=== PATIENT | male | born 1955 | race Caucasian/White ===

== ENCOUNTER 2022-09-15 12:01 | Emergency (ER) | payer OTHER, SELFPAY ==
[2022-09-15 12:25] VITALS: BP 141/86; PULSE 85; TEMP 36.8; O2SAT 95; BMI 38.2
--- NOTE | 2022-09-15 12:29 | XR_ITS ---
WS: [id number] Portable AP upright chest, 09/15/2022 Clinical Data: Rib pain Comparison: None. Findings: No nodules, masses or effusions are seen. The heart is normal. The pulmonary vascularity is not increased. No pneumonia or pneumothorax is seen. The aortic arch and descending thoracic aorta s how tortuosity. The diaphragms are flattened. XR/XR chest 1V portable [id number] Impression: Atherosclerosis and cardiomegaly.
--- NOTE | 2022-09-15 14:02 | XR_ITS ---
WS: [id number] Right rib detail, 3 views, 09/15/2022 Clinical Data: right rib pain Comparison: None. Findings: Ribs are intact. There are no fractures. No pneumothorax or subcutaneous emphysema is seen. XR/XR ribs RT 2V* [id number] Impression: Negative right rib detail.
--- NOTE | 2022-09-15 14:16 | W.ED.GENADLT ---
HPI - General Adult General: Chief complaint: General Medical Stated complaint: Rib pain in the upper Right side Time Seen by Provider: 09/15/22 14:02 History of Present Illness: Patient is a 66-year-old male comes to the ED with right rib pain. Patient says yesterday he went to his chiropractor's office and they did some adjustments on him. After the adjustments he felt some pain in his right anterior lower ribs. Pain was mild yesterday and into the evening. Today he got up and was mowing the yard and started feeling more pain in the right ribs again. He rates his pain is mild and says it is a 5 out of 10. Pain worsens with movements and he feels a little bit of pain when he takes a deep breath. Denies any other injuries or trauma. Associated symptoms: Deny chest pain, dyspnea, headache(s), nausea, rash, palpitations or vomiting Review of Systems Const: Denies: fever(s), chills or fatigue Eyes: Denies: change in vision or eye discomfort ENMT: Denies: throat pain, odynophagia, nasal discharge or nasal congestion Card: Denies: chest pain, palpitations, edema, swelling of feet/ankles, dyspnea on exertion or orthopnea Resp: Denies: dyspnea, productive cough or non-productive cough GI: Denies: abdominal pain, nausea, vomiting, diarrhea, constipation or hematochezia : Denies: flank pain, difficulty urinating, dysuria or hematuria Musc: Reports: other (Right rib pain); Denies: neck pain, back pain or extremity swelling Skin/Breast: Denies: rash or new lesions Neuro: Denies: headache(s), numbness in extremities or weakness in extremities [facility] ED PFSH: Medical History (Updated 09/15/22 @ 14:55 by KAT Sutton) No pertinent family history Surgical History (Updated 09/15/22 @ 14:19 by KAT Sutton) No pertinent past surgical history Physical Exam Const: COMMON NORMALS: no acute distress, patient oriented x3 and healthy appearing HENMT: COMMON NORMALS: normocephalic HEAD & SCALP: normocephalic MOUTH: Normal oral and palatal mucosa present THROAT: posterior oropharynx normal and uvula midline Neck/C-Spine: COMMON NORMALS: supple GENERAL: Yes normal visual inspection Chest: CHEST: Yes tenderness rib right mid-clavicular line involving the 8th rib and involving the 9th rib Resp: COMMON NORMALS: normal respiratory effort, No retractions, No use of accessory muscles and clear to auscultation bilaterally AUSCULTATION: clear to auscultation bilaterally Cardio: COMMON NORMALS: regular rate, regular rhythm, S1 normal heart sound present, S2 normal heart sound present, No gallops present (Cardio), No clicks present (Cardio), No murmurs present (Cardio) and Peripheral pulses 2+ throughout RATE: regular rate RHYTHM: regular rhythm HEART SOUNDS: S1 normal heart sound present and S2 normal heart sound present PERIPHERAL PULSES: Peripheral pulses 2+ throughout GI: COMMON NORMALS: Normal to inspection, nondistended, normoactive bowel sounds present, Soft to palpation, non-tender and no masses PALPATION: Yes Soft to palpation : COMMON NORMALS: Yes no CVA tenderness BLADDER/KIDNEY EXAM: Yes no CVA tenderness Back/Pelvis: COMMON NORMALS: no CVA tenderness Extremity: COMMON NORMALS: normal to inspection Neuro: COMMON NORMALS: patient oriented x3 GAIT: Yes Normal gait present Skin: GENERAL SKIN EXAM: dry skin Course Vital Signs: Vital signs: Vital Signs Temperature 98.3 F 09/15/22 12:25 Pulse Rate 85 09/15/22 12:25 Blood Pressure 141/86 09/15/22 12:25 Pulse Oximetry 95 09/15/22 12:25 Oxygen Delivery Me thod Room Air 09/15/22 12:25 [facility] - General Adult Medical Decision Making Patient is a 66-year-old male comes to the ED with right rib pain. Patient says yesterday he went to his chiropractor's office and they did some adjustments on him. After the adjustments he felt some pain in his right anterior lower ribs. Pain was mild yesterday and into the evening. Today he got up and was mowing the yard and started feeling more pain in the right ribs again. He rates his pain is mild and says it is a 5 out of 10. Pain worsens with movements and he feels a little bit of pain when he takes a deep breath. Denies any other injuries or trauma. Vitals are stable. Patient has some mid and clavicular right anterior rib tenderness around ribs 8 and 9. Rest of exam is benign he appears in no acute distress or pain. Rib x-ray was negative for any acute fractures or findings. Patient was diagnosed with right rib pain and was stable for discharge home. Told to follow-up with his PCP in the next week for reevaluation. Return to ED precautions given. Patient understood and agreed with plan. Lab Data Radiology Impressions Chest X-Ray 09/15/22 12:29 Impression: Atherosclerosis and cardiomegaly. Ribs X-Ray 09/15/22 14:02 Impression: Negative right rib detail. Discharge Plan Discharge Patient Disposition: Home Clinical Impression: Rib pain on right side Condition: Stable Discharge Orders: Discharge ED (Routine); Ordered 09/15/22 Ordered By: Raudel English Referrals: Amee Neff MD [Primary Care Provider] - Discharge Diet: Regular Discharge Activity: Increase activity as tolerated Activity Restrictions/Additional Instructions: Follow-up with medical provider as directed in the next 5 to 7 days for reevaluation. Take srea-dva-cvyeltk Tylenol or ibuprofen to help with pain. Return to the ER or your medical provider if condition worsens. Please read and understand discharge instructions. Thank you for choosing [facility] for your healthcare needs today. Please realize this is an emergency room and that we are providing you with a medical screening exam and this may not be complete and all inclusive of all the testing and or work up that you may need to determine your ailment or severity of your illness. It is very important that you follow up as instructed or that you return to the Emergency Department should you have concerns or if your condition changes or worsens in any way. Coding Level of Care Code ED [employer] for Manolo Hood
== END 2022-09-15 15:13 | disposition home or self-care (01) ==
PROVIDERS: Emergency Provider Physician Assistant; PCP Family Medicine
DX: R07.81 Pleurodynia (principal)
CPT/HCPCS: 71045; 71100; 99283

== ENCOUNTER → 2023-03-23 16:07 | Outpatient (BNVA) | payer OTHER, SELFPAY | PROVIDERS: PCP Family Medicine; Referring Provider Family Medicine; Visit Provider Specialist | DX: M25.562 Pain in left knee; Z98.890 Other specified postprocedural states | CPT/HCPCS: 73560; 73565; 99205 ==

== ENCOUNTER 2023-04-09 12:08 | Emergency (ER) | payer OTHER, SELFPAY ==
[2023-04-09 12:17] VITALS: BP 154/91; PULSE 96; RESP 17; TEMP 37.2; O2SAT 94; BMI 37.1
--- NOTE | 2023-04-09 12:55 | ED_ITS ---
HPI - Skin/Abscess/Foreign Bdy General: Chief complaint: Skin/Abscess/Foreign Body Stated complaint: skin irritation right side face Time Seen by Provider: 04/09/23 12:40 History of Present Illness: 67-year-old male presented emergency room for complaint of swelling and redness to the right side of the face for the past 2 days. Patient further reviews that he was concerned about shingles. Described the pain as throbbing sensation with severity of 2 with some redness and swelling. Denies any fall, any injury, no contact with any irritants. Denies any fever, chills, difficulty breathing, cough, coughing up blood or vomiting blood. No night sweats, no eye pain drainage or bleeding. Review of Systems General: Reports: 10 or more systems reviewed and unremarkable except in HPI and below Skin/Breast: Reports: rash, erythema and other (Right left side of face with some redness and rash.) PFS ED PFSH: Medical History No pertinent family history Surgical History No pertinent past surgical history Physical Exam Const: COMMON NORMALS: no acute distress, average body habitus, patient oriented x3, no limitations, healthy appearing, alert and well nourished Eye: COMMON NORMALS: Equal, round and reactive pupils present, EOMs intact bilaterally, conjunctivae normal, no scleral icterus, no papilledema, normal visual márquez by confrontation and fundi normal bilaterally CONJUNCTIVA: Yes conjunctivae normal PUPIL: Yes Equal, round and reactive pupils present DIRECT OPHTHALMOSCOPY: Yes no papilledema and Yes fundi normal bilaterally Neck/C-Spine: COMMON NORMALS: full ROM, no lymphadenopathy, supple, no meningeal signs, no JVD, Thyroid normal and No carotid bruits THYROID: Thyroid normal Cardio: COMMON NORMALS: no JVD Neuro: COMMON NORMALS: patient oriented x3 SENSORIUM/ORIENTATION: Yes alert MENINGEAL SIGNS: Yes no meningeal signs Skin: SKIN IMAGES (MALE): 1. Area with flat lesion without any vesicles to suggest shingles. Mild redness. No open wound, no drainage or bleeding from this area. No tenderness upon palpation. Mild swelling did notice. No bony deformities upon palpation. RASHES: rashes noted Course Vital Signs: Vital signs: Vital Signs Temperature 98.9 F 04/09/23 12:17 Pulse Rate 96 04/09/23 12:17 Respiratory Rate 17 04/09/23 12:17 Blood Pressure 154/91 04/09/23 12:17 Pulse Oximetry 94 04/09/23 12:17 Oxygen Delivery Me thod Room Air 04/09/23 12:17 MDM - Skin/Abscess/Foreign Bdy Medicial Decision Making Patient made comfortable emergency room. Patient was reassured. She will be given antibiotics and steroid for few days. Close follow-up PCP recommended in 2 to 3 days for repeat recheck and reexamination. Differential Diagnosis Likely dermatophytosis, urticaria, herpes zoster, allergic reaction to drug, cellulitis, eczema, insect bites, impetigo and contact dermatitis No radiology studies performed this visit Discharge Plan Discharge Patient Disposition: Home Clinical Impression: Cellulitis Condition: Stable Prescriptions: New cephalexin 500 mg capsule 500 mg PO BID 10 Days Qty: 20 0RF Medrol (Mark) 4 mg tablets,dose pack 4 mg PO DAILY Qty: 21 0RF Discharge Orders: Discharge ED (Routine); Ordered 04/09/23 Ordered By: Maribell Cooley Referrals: Amee Neff MD [Primary Care Provider] - Discharge Diet: Advance as tolerated Discharge Activity: Resume usual activity Patient Instructions: Opioid Safety, Pain Management Coding Level of Care Code ED [employer] for Manolo Hood
== END 2023-04-09 13:03 | disposition home or self-care (01) ==
PROVIDERS: Emergency Provider Family Medicine; PCP Family Medicine
DX: L03.211 Cellulitis of face (principal)
CPT/HCPCS: 99283

== ENCOUNTER → 2023-09-07 12:36 | Outpatient (BNVA) | payer OTHER, SELFPAY | PROVIDERS: PCP Family Medicine; Visit Provider Dermatology | DX: C46.0 Kaposi's sarcoma of skin (principal); L21.8 Other seborrheic dermatitis; L82.1 Other seborrheic keratosis; L03.031 Cellulitis of right toe; L85.3 Xerosis cutis; L91.8 Other hypertrophic disorders of the skin; L81.4 Other melanin hyperpigmentation | CPT/HCPCS: 99204 ==

== ENCOUNTER → 2023-09-21 09:20 | Outpatient (BNVA) | payer OTHER, SELFPAY | PROVIDERS: PCP Family Medicine; Visit Provider Specialist | DX: M25.562 Pain in left knee; G89.29 Other chronic pain; Z96.653 Presence of artificial knee joint, bilateral | CPT/HCPCS: 73560; 73565; 99214 ==

== ENCOUNTER → 2024-01-03 09:01 | Outpatient (BNVA) | payer OTHER, SELFPAY | PROVIDERS: PCP Family Medicine; Visit Provider Podiatrist Foot & Ankle Surgery | DX: M25.571 Pain in right ankle and joints of right foot (principal); M79.671 Pain in right foot; E11.42 Type 2 diabetes mellitus with diabetic polyneuropathy; L60.3 Nail dystrophy; G62.9 Polyneuropathy, unspecified; Z79.84 Long term (current) use of oral hypoglycemic drugs | CPT/HCPCS: 73630; 99203 ==

== ENCOUNTER → 2024-03-06 09:36 | Outpatient (BNVA) | payer OTHER, SELFPAY | PROVIDERS: PCP Family Medicine; Visit Provider Podiatrist Foot & Ankle Surgery | DX: L60.3 Nail dystrophy (principal); G62.9 Polyneuropathy, unspecified; E11.42 Type 2 diabetes mellitus with diabetic polyneuropathy; Z79.84 Long term (current) use of oral hypoglycemic drugs | CPT/HCPCS: 99213 ==

== ENCOUNTER → 2024-03-08 12:48 | Outpatient (BNVA) | payer OTHER, SELFPAY | PROVIDERS: PCP Family Medicine; Visit Provider Dermatology | DX: M79.662 Pain in left lower leg (principal); C46.0 Kaposi's sarcoma of skin; L82.1 Other seborrheic keratosis; L81.4 Other melanin hyperpigmentation; L21.8 Other seborrheic dermatitis; L85.3 Xerosis cutis; L91.8 Other hypertrophic disorders of the skin | CPT/HCPCS: 99214 ==

== ENCOUNTER 2024-03-14 09:05 | Outpatient (CLI) | payer OTHER, SELFPAY ==
--- NOTE | 2024-03-14 09:29 | XRR_ITS ---
PROCEDURE INFORMATION: Exam: XR Left Tibia and Fibula Exam date and time: 03/14/2024 9:34 AM Age: 68 years old Clinical indication: Pain; Lower leg; Left; Prior surgery; Surgery date: <1 month; Patient HX: Skin cancer removal on the thakur. PT states tingling in the area for the last few weeks. ; Additional info: Pain in left lower leg TECHNIQUE: Imaging protocol: Radiologic exam of the left tibia and fibula. Views: 2 views. COMPARISON: CR XR knee LT 1-2V [id number] 03/14/2024 9:34 AM FINDINGS: Bones/joints: Postop medial hemiarthroplasty changes. No evidence of fracture or dislocation Soft tissues: Normal. XR/XR tibia fibula LT 2V [id number] IMPRESSION: Postop medial hemiarthroplasty change. No complicating process
--- NOTE | 2024-03-14 09:29 | XRR_ITS ---
PROCEDURE INFORMATION: Exam: XR Left Knee Exam date and time: 03/14/2024 9:34 AM Age: 68 years old Clinical indication: Pain; Knee; Left; Prior surgery; Surgery date: <1 month; Patient HX: Skin cancer removal on the thakur. PT states tingling in the area for the last few weeks. ; Additional info: Pain in left lower leg TECHNIQUE: Imaging protocol: Radiologic exam of the left knee. Views: 1 or 2 views. COMPARISON: CR XR knees AP WB w BI lmt ORTH 09/21/2023 9:23 AM FINDINGS: Bones/joints: Postop medial hemiarthroplasty surgical change. No complicating process Soft tissues: Normal. XR/XR knee LT 1-2V [id number] IMPRESSION: Postop medial hemiarthroplasty surgical change. No complicating process
== END 2024-03-14 09:06 | disposition home or self-care (01) ==
LOC: RAD 09:06
PROVIDERS: PCP Family Medicine; Visit Provider Dermatology
DX: M79.662 Pain in left lower leg (principal); Z96.642 Presence of left artificial hip joint
CPT/HCPCS: 73560; 73590

== ENCOUNTER → 2024-08-08 09:35 | Outpatient (BNVA) | payer OTHER, SELFPAY | PROVIDERS: PCP Family Medicine; Visit Provider Specialist | DX: M25.561 Pain in right knee (principal); M25.562 Pain in left knee; Z96.653 Presence of artificial knee joint, bilateral; G89.29 Other chronic pain | CPT/HCPCS: 73560; 73565; 99205 ==

== ENCOUNTER 2024-08-21 08:43 | Outpatient (CLI) | payer OTHER, SELFPAY ==
--- NOTE | 2024-08-21 09:30 | MR_ITS ---
WS: [id number] MRI LEFT KNEE HISTORY: DISTAL QUADRICEPS PAIN COMPARISON: Radiograph 08/08/2024 Extensive beam Fernandez artifact throughout the knee joint secondary to medial hemiarthroplasty. Large portions of the central knee are not well visualized. Anterior cruciate ligament: ACL is best seen on the axial imaging. Only the superiormost ACL is identified and appears normal. The distal ACL is obscured by artifact. Posterior cruciate ligament: Intact. Medial collateral ligament: Distorted and obscured by the metal artifact. Posterior lateral corner structures: Intact. No tear identified. Medial menisci: Completely obscured by artifact. Lateral meniscus: Intact. Normal signal, size and shape. Extensor mechanism: Abnormal quadriceps tendon. There is thickened heterogeneous signal within the distal quadriceps tendon. Increased signal extends into the more central portion of the tendon superiorly. The tendon does not appear to be completely torn or retracted. Intermediate signal in the popliteus tendon. Fluid and soft tissue: Small joint effusion. No Sims's cyst. Osseous and articular structures: Patellofemoral compartment: Moderate to severe patellofemoral joint space narrowing. Small osteophytes with loss of cartilage. No marrow edema. No displacement from the trochlear groove. Medial compartment: Obscured medial compartment by hemiarthroplasty. Lateral compartment: Moderate to severe narrowing of the lateral compartment with marginal osteophytes. Mild chondromalacia throughout. There is a more focal full-thickness small defect in the central tibial plateau. MR/MR knee LT con* [id number] IMPRESSION: 1. Significant artifact from the patient's prior medial hemiarthroplasty obscu ring portions of the central knee. 2. Moderately abnormal quadriceps tendon. Thickened heterogeneous quadriceps t endon. Consistent with advanced tendinitis. No tear is identified. 3. Nonvisualization of the entire ACL. 4. Advanced osteoarthritic changes in the patellofemoral and lateral compartme nts.
== END 2024-08-21 08:44 | disposition home or self-care (01) ==
LOC: RAD 08:44
PROVIDERS: PCP Family Medicine; Visit Provider Specialist
DX: Z96.653 Presence of artificial knee joint, bilateral (principal); G89.29 Other chronic pain; M17.12 Unilateral primary osteoarthritis, left knee; M94.262 Chondromalacia, left knee; M25.762 Osteophyte, left knee; R93.6 Abnormal findings on diagnostic imaging of limbs; Z98.890 Other specified postprocedural states
CPT/HCPCS: 73721

== ENCOUNTER 2024-08-29 07:22 | Outpatient (CLI) | payer OTHER, SELFPAY ==
--- NOTE | 2024-08-29 08:00 | NM_ITS ---
WS: [id number] THREE-PHASE BONE SCAN HISTORY: bilateral uni-arthroplasty COMPARISON: Knee radiograph 08/08/2024 Patient is is injected with 26.9 mCi Tc99m HDP intravenously. Immediate angiographic phase imaging is performed over the area of concern. Static blood pool imaging also performed. Two-hour whole-body scintigrams performed in anterior and posterior projections. Additional large field of view imaging sub mitted as necessary. Normal arterial and blood pool phase imaging centered over the knees. Photopenic defects along the medial knee joints from bilateral hemiarthroplasties. Essentially symmetric uptake within each knee. No area of intense uptake to suggest osteomyelitis. Intermediate uptake is most consistent with arthropathy. Slightly greater increased uptake along the posterior RIGHT femoral condyle corresponds to an osteophyte. Moderate increased uptake involving the distal RIGHT tibia. Mild AC joint arthropathy. Normal uptake in the spine and ribs. Bilateral wrist arthropathy. NM/NM bone 3 phase [id number] IMPRESSION: 1. Intermediate uptake at both knee joints. Symmetric uptake is more significa nt with arthritis. 2. Status post bilateral medial hemiarthroplasties. 3. More focal increased uptake involving the posterior RIGHT femoral condyle i s at the site of an osteophyte seen radiographically. 4. Focal horizontal uptake distal RIGHT tibia. This may be at the site of a pr ior stress fracture. Orthopedic screws are noted in the distal fibula and there is narrowing of the distal tibiofibular articulation radiographically.
== END 2024-08-29 07:23 | disposition home or self-care (01) ==
PROVIDERS: PCP Family Medicine; Visit Provider Specialist
DX: Z96.653 Presence of artificial knee joint, bilateral (principal); R93.6 Abnormal findings on diagnostic imaging of limbs; Z98.890 Other specified postprocedural states; M25.761 Osteophyte, right knee; M12.819 Other specific arthropathies, not elsewhere classified, unspecified shoulder; M12.832 Other specific arthropathies, not elsewhere classified, left wrist; M12.831 Other specific arthropathies, not elsewhere classified, right wrist
CPT/HCPCS: 78315; A9561

== ENCOUNTER → 2024-09-06 12:54 | Outpatient (BNVA) | payer OTHER, SELFPAY | PROVIDERS: PCP Family Medicine; Visit Provider Dermatology | DX: L82.1 Other seborrheic keratosis (principal); L70.8 Other acne; L57.8 Other skin changes due to chronic exposure to nonionizing radiation; D22.5 Melanocytic nevi of trunk | CPT/HCPCS: 99213 ==

== ENCOUNTER → 2024-09-24 08:54 | Outpatient (BNVA) | payer OTHER, SELFPAY | PROVIDERS: PCP Family Medicine; Visit Provider Specialist | DX: M25.561 Pain in right knee (principal); M25.562 Pain in left knee; G89.29 Other chronic pain; Z96.653 Presence of artificial knee joint, bilateral | CPT/HCPCS: 99214 ==

== ENCOUNTER 2024-10-03 13:49 | Outpatient (RCR) | payer OTHER, SELFPAY | END 2024-10-27 23:59 | disposition home or self-care (01) | LOC: APT 13:49 | PROVIDERS: Visit Provider Specialist | DX: M25.561 Pain in right knee (principal); M25.562 Pain in left knee | CPT/HCPCS: 97110; 97162 ==

== ENCOUNTER 2024-10-28 05:00 | Outpatient (RCR) | payer OTHER, SELFPAY | END 2024-11-26 23:59 | disposition home or self-care (01) | LOC: APT 05:00 | PROVIDERS: Visit Provider Specialist | DX: M25.561 Pain in right knee (principal); M25.562 Pain in left knee | CPT/HCPCS: 97110; 97112; 97530 ==

== ENCOUNTER 2024-11-27 05:00 | Outpatient (RCR) | payer OTHER, SELFPAY | END 2024-12-27 23:59 | disposition home or self-care (01) | LOC: APT 05:00 | PROVIDERS: Visit Provider Specialist | DX: M25.561 Pain in right knee (principal); M25.562 Pain in left knee | CPT/HCPCS: 97110; 97140; 97530 ==

== ENCOUNTER → 2025-01-01 09:09 | Outpatient (BNVA) | payer OTHER, SELFPAY | PROVIDERS: PCP Family Medicine; Visit Provider Podiatrist Foot & Ankle Surgery | DX: M25.571 Pain in right ankle and joints of right foot (principal); M93.271 Osteochondritis dissecans, right ankle and joints of right foot | CPT/HCPCS: 73610; 99214 ==

== ENCOUNTER 2025-01-08 12:59 | Outpatient (CLI) | payer OTHER, SELFPAY ==
--- NOTE | 2025-01-08 13:04 | CT_ITS ---
WS: [id number] CT RIGHT ANKLE, NONCONTRAST HISTORY: osteochondral defect of right ankle Technique: All CT scans at [facility] use at least one of these dose optimization techniques: automated exposure control; mA and/or kV adjustment per patient size (includes targeted exams where dose is matched to clinical indication); or iterative reconstruction. DLP: 124.82 mGy.cm COMPARISON: Radiograph 01/01/2025 No acute fractures. 2 short screws in the distal fibula from prior ORIF. Deformity and flattening of the normal talar dome. There are numerous subchondral cystic changes involving the tibial plafond and the talar dome. These are most typical for subchondral cysts related to arthropathy. There is a small amount of degenerative air in the tibiotalar joint. Subchondral cyst also noted in the distal fibula. Asymmetric narrowing of the tibiotalar joint space. Mild soft tissue edema surrounding the ankle. Calcifications in the posterior tibial artery. CT/CT ankle RT wo con* [id number] IMPRESSION: 1. Numerous subchondral cystic changes involving the tibial plafond and the ta lar dome. 2. Asymmetric narrowing of the tibiotalar joint from arthropathy. 3. Mild flattening of the normal talar dome. 4. No fractures.
== END 2025-01-08 13:00 | disposition home or self-care (01) ==
LOC: RAD 13:01
PROVIDERS: PCP Family Medicine; Visit Provider Podiatrist Foot & Ankle Surgery
DX: M85.671 Other cyst of bone, right ankle and foot (principal); M19.071 Primary osteoarthritis, right ankle and foot; M95.8 Other specified acquired deformities of musculoskeletal system
CPT/HCPCS: 73700

== ENCOUNTER → 2025-01-09 12:49 | Outpatient (BNVA) | payer OTHER, SELFPAY | PROVIDERS: PCP Family Medicine; Visit Provider Specialist | DX: M25.561 Pain in right knee (principal); M25.562 Pain in left knee; Z96.653 Presence of artificial knee joint, bilateral; G89.29 Other chronic pain | CPT/HCPCS: 11104; 73560; 73565; 99214 ==

== ENCOUNTER → 2025-01-22 08:06 | Outpatient (BNVA) | payer OTHER, SELFPAY | PROVIDERS: PCP Family Medicine; Visit Provider Podiatrist Foot & Ankle Surgery | DX: M19.071 Primary osteoarthritis, right ankle and foot (principal) | CPT/HCPCS: 99214 ==

== ENCOUNTER 2025-01-23 14:56 | Outpatient (CLI) | payer OTHER, SELFPAY ==
[2025-01-23 17:01] LABS: Rapid Plasma Reagin Syphilis Reactive (Nonreactive)
[2025-01-23 18:02] LABS: HIV 1 & 2 Antigen Non-Reactive (Non-Reactiv)
[2025-01-25 14:15] LABS: RPR w(Moniotor) w/REFL Titer NON-REACTIVE (NON-REACTIVE)
== END 2025-01-23 14:57 | disposition home or self-care (01) ==
LOC: LAB 14:58
PROVIDERS: PCP Family Medicine; Visit Provider Dermatology
DX: C46.0 Kaposi's sarcoma of skin (principal)
CPT/HCPCS: 86592; 87806

== ENCOUNTER 2025-01-28 05:00 | Outpatient (RCR) | payer OTHER, SELFPAY | END 2025-02-26 23:59 | disposition home or self-care (01) | LOC: APT 05:00 | PROVIDERS: Visit Provider Family Medicine | DX: M25.569 Pain in unspecified knee (principal) | CPT/HCPCS: 97110; 97140; 97161; 97530 ==

== ENCOUNTER 2025-02-01 10:20 | Outpatient (CLI) | payer OTHER, SELFPAY ==
[2025-02-01 12:45] LABS: Blood Urea Nitrogen 19 mg/dL (8-23)
== END 2025-02-01 10:21 | disposition home or self-care (01) ==
LOC: LAB 10:23
PROVIDERS: PCP Family Medicine; Visit Provider Dermatology
DX: C46.0 Kaposi's sarcoma of skin (principal); R59.0 Localized enlarged lymph nodes
CPT/HCPCS: 36415; 82565; 84520

== ENCOUNTER 2025-02-05 08:02 | Outpatient (CLI) | payer OTHER, SELFPAY ==
--- NOTE | 2025-02-05 08:12 | CT_ITS ---
WS: [email or web address] CT NECK TECHNIQUE: Contrast-enhanced CT of the neck with coronal and sagittal reformatted images. CLINICAL INFORMATION: LOCALIZED ENLARGED LYMPH NODES COMPARISON: None. DLP: 254.[address] scans at [facility] use at least one of these dose optimization techniques: automated exposure control; mA and/or kV adjustment per patient size (includes targeted exams where dose is matched to clinical indication); or iterative reconstruction. FINDINGS: Parotid glands are normal. Normal submandibular glands. No evidence of supraglottic or glottic mass. Normal parapharyngeal fat. Normal subglottic airway. Small RIGHT thyroid nodule. Visualized paranasal sinuses and mastoid air cells are well aerated. No cervical lymphadenopathy. Moderate spondylitic changes cervical spine. Lung apices are well aerated. No other suspicious findings. CT/CT neck w con* [id number] IMPRESSION: 1. No acute neck findings.
--- NOTE | 2025-02-05 08:12 | CT_ITS ---
WS: [email or web address] CT CHEST, ABDOMEN, AND PELVIS TECHNIQUE: Contrast-enhanced CT of the chest, abdomen, and pelvis with coronal and sagittal reformatted images. CLINICAL INFORMATION: LOCALIZED ENLARGED LYMPH NODES COMPARISON: None. DLP: 1462.[address] scans at [facility] use at least one of these dose optimization techniques: automated exposure control; mA and/or kV adjustment per patient size (includes targeted exams where dose is matched to clinical indication); or iterative reconstruction. CT CHEST: Lungs are well aerated. No suspicious pulmonary parenchymal opacities. Few tiny nodules in the RIGHT lower lobe. Normal caliber thoracic aorta. Aortic calcification. No mediastinal or hilar lymphadenopathy. No axillary lymphadenopathy. Mild thoracic curve. No evidence of metastatic disease in the chest. CT ABDOMEN AND PELVIS: Fatty liver. Normal portal vein and splenic vein. Normal spleen. Small esophageal hiatal hernia. Normal pancreas. Adrenal glands are normal. Normal renal parenchymal enhancement. No hydronephrosis. Normal gallbladder. Fat- containing LEFT inguinal hernia. Enlarged prostate measuring 4.7 cm. Recommend correlation PSA. Sigmoid diverticulosis. No evidence of acute diverticulitis. Normal appendix in the RIGHT lower quadrant. Grade 1 anterolisthesis L4 on L5. Normal caliber abdominal aorta. Celiac and SMA are patent. CT/CT chest abdpel w/*[id number] IMPRESSION: 1. No evidence of metastatic disease in the chest abdomen or pelvis. 2. Fatty liver. 3. Enlarged prostate measuring 4.7 cm. Recommend correlation PSA. 4. No adenopathy in the chest abdomen or pelvis. 5. Fat-containing LEFT inguinal hernia. 6. Sigmoid diverticulosis.
[2025-02-05] MEDS: iohexol 350 mg/mL 500 mL Btl (per mL) IV ×2 (08:57)
== END 2025-02-05 08:03 | disposition home or self-care (01) ==
LOC: RAD 08:02
PROVIDERS: Visit Provider Dermatology
DX: C46.0 Kaposi's sarcoma of skin (principal); R59.0 Localized enlarged lymph nodes; E04.1 Nontoxic single thyroid nodule; K76.0 Fatty (change of) liver, not elsewhere classified; N40.0 Benign prostatic hyperplasia without lower urinary tract symptoms; K40.90 Unilateral inguinal hernia, without obstruction or gangrene, not specified as recurrent; K57.30 Diverticulosis of large intestine without perforation or abscess without bleeding
CPT/HCPCS: 70491; 71260; 74177

== ENCOUNTER 2025-02-14 11:00 | Oncology outpatient (recurring) (ONCR) | payer OTHER, SELFPAY ==
[2025-02-14 12:44] LABS: Hematocrit 45.1 % (37-53); Hemoglobin 15.70 g/dL (11.27-16.99); Mean Corpuscular HGB Conc 34.8 g/dL (30-55); Mean Corpuscular Hemoglobin 31.4 pg (27-33); Mean Corpuscular Volume 90.2 fl (82-101); Nucleated Red Blood Cells % 0 %; Platelet Count 205 10^3/cmm (157-399); Red Blood Count 5.00 10^6/uL (3.85-5.65); White Blood Count 7.78 10^3/uL (3.29-11.43)
[2025-02-14 13:11] LABS: Alanine Aminotransferase 32 U/L (0-41); Albumin Level 4.5 g/dL (3.5-5.2); Alkaline Phosphatase 59 U/L (40-130); Anion Gap 21.2 (5-19); Aspartate Amino Transferase 24 U/L (0-40); Blood Urea Nitrogen 14 mg/dL (8-23); Calcium 9.6 mg/dL (8.5-10.5); Carbon Dioxide 22 mmol/L (22-29); Chloride 100 mmol/L (98-107); Creatinine Clr Calc Pharmacy 97.5890; Globulin 2.6 g/dL (1.3-4.6); Glucose 125 mg/dL (65-115); Osmolality Calculated 290 mOsm/kg (285-295); Potassium 4.2 mmol/L (3.5-5.1); Prostate Specific Antigen 2.510 ng/mL (0-4); Sodium 139 mmol/L (136-145); Total Protein 7.1 g/dL (6.6-8.7)
== END 2025-02-26 23:59 | disposition home or self-care (01) ==
PROVIDERS: Visit Provider Internal Medicine
DX: C46.0 Kaposi's sarcoma of skin (principal); N40.0 Benign prostatic hyperplasia without lower urinary tract symptoms; Z86.19 Personal history of other infectious and parasitic diseases; M25.579 Pain in unspecified ankle and joints of unspecified foot; E11.9 Type 2 diabetes mellitus without complications
CPT/HCPCS: 36415; 80053; 82784; 83615; 84153; 85025; 99205

== ENCOUNTER → 2025-02-21 08:56 | Outpatient (BNVA) | payer OTHER, SELFPAY | PROVIDERS: Visit Provider Student in an Organized Health Care Education/Training Program | DX: C46.9 Kaposi's sarcoma, unspecified (principal); A53.0 Latent syphilis, unspecified as early or late | CPT/HCPCS: 99215 ==

== ENCOUNTER → 2025-02-26 10:01 | Outpatient (BNVA) | payer OTHER, SELFPAY | PROVIDERS: PCP Family Medicine; Visit Provider Podiatrist Foot & Ankle Surgery | DX: M19.071 Primary osteoarthritis, right ankle and foot (principal) | CPT/HCPCS: 99213 ==

== ENCOUNTER → 2025-03-18 10:56 | Outpatient (BNVA) | payer OTHER, SELFPAY | PROVIDERS: PCP Family Medicine; Visit Provider Dermatology | DX: C46.0 Kaposi's sarcoma of skin (principal); D18.01 Hemangioma of skin and subcutaneous tissue; L81.4 Other melanin hyperpigmentation; L57.8 Other skin changes due to chronic exposure to nonionizing radiation | CPT/HCPCS: 99214 ==

== ENCOUNTER 2025-03-28 11:04 | Outpatient (RCR) | payer OTHER, SELFPAY | END 2025-03-29 23:59 | disposition home or self-care (01) | LOC: APT 11:04 | PROVIDERS: PCP Family Medicine; Visit Provider Family Medicine | DX: M25.561 Pain in right knee (principal); M25.562 Pain in left knee | CPT/HCPCS: 97110; 97140; 97530 ==

== ENCOUNTER 2025-03-30 05:00 | Outpatient (RCR) | payer OTHER, SELFPAY | END 2025-04-28 23:59 | disposition home or self-care (01) | LOC: APT 05:00 | PROVIDERS: PCP Clinical Nurse Specialist Adult Health; Visit Provider Family Medicine | DX: M25.569 Pain in unspecified knee (principal) | CPT/HCPCS: 97110; 97530 ==

== ENCOUNTER → 2025-04-12 12:09 | Outpatient (BNVA) | payer OTHER, MEDICARE, SELFPAY | PROVIDERS: PCP Clinical Nurse Specialist Adult Health; Visit Provider Dermatology | DX: D23.71 Other benign neoplasm of skin of right lower limb, including hip (principal); L81.0 Postinflammatory hyperpigmentation; C46.0 Kaposi's sarcoma of skin | CPT/HCPCS: 99214 ==

== ENCOUNTER 2025-05-17 08:53 | Oncology outpatient (recurring) (ONCR) | payer OTHER, SELFPAY ==
[2025-05-16 11:17] LABS: Hematocrit 43.3 % (37-53); Hemoglobin 15.00 g/dL (11.27-16.99); Mean Corpuscular HGB Conc 34.6 g/dL (30-55); Mean Corpuscular Hemoglobin 30.5 pg (27-33); Mean Corpuscular Volume 88.2 fl (82-101); Nucleated Red Blood Cells % 0 %; Platelet Count 208 10^3/cmm (157-399); Red Blood Count 4.91 10^6/uL (3.85-5.65); White Blood Count 8.30 10^3/uL (3.29-11.43)
[2025-05-16 11:38] LABS: Alanine Aminotransferase 35 U/L (0-41); Albumin Level 4.3 g/dL (3.5-5.2); Alkaline Phosphatase 47 U/L (40-130); Anion Gap 15.4 (5-19); Aspartate Amino Transferase 20 U/L (0-40); Blood Urea Nitrogen 16 mg/dL (8-23); Calcium 9.6 mg/dL (8.5-10.5); Carbon Dioxide 24 mmol/L (22-29); Chloride 103 mmol/L (98-107); Globulin 2.4 g/dL (1.3-4.6); Glucose 152 mg/dL (65-115); Osmolality Calculated 290 mOsm/kg (285-295); Potassium 4.4 mmol/L (3.5-5.1); Sodium 138 mmol/L (136-145); Total Protein 6.7 g/dL (6.6-8.7)
== END 2025-05-29 23:59 | disposition home or self-care (01) ==
PROVIDERS: PCP Clinical Nurse Specialist Adult Health; Visit Provider Internal Medicine
DX: C46.7 Kaposi's sarcoma of other sites (principal); N40.0 Benign prostatic hyperplasia without lower urinary tract symptoms; Z86.13 Personal history of malaria
CPT/HCPCS: 11102; 36415; 80053; 83615; 85025; 99213